=== PATIENT | female | born 1985 | race Two or more races ===

== ENCOUNTER 2017-10-31 13:25 | Emergency (ER) | payer BC ==
[~2017-10-31] VITALS: Ht 162.6 cm; Wt 49.9 kg
--- NOTE | 2017-10-31 14:42 | NUR ---
CALLED IN [place]- NO ANSWER
[2017-10-31 14:50] VITALS: BP 112/70
== END 2017-10-31 16:32 | disposition home or self-care (01) ==
LOC: ER 13:44
DX: J32.9 Chronic sinusitis, unspecified (principal)
CPT/HCPCS: 99283; A4606; Z7610